=== PATIENT | female | born 1960 | race Caucasian/White ===

== ENCOUNTER 2017-05-24 19:30 | Emergency (ER) | payer OTHER ==
[~2017-05-24] VITALS: Ht 177.8 cm; Wt 70.0 kg
[~2017-05-24 19:30] MED LIST: LORTA5 PO; METH750T2 PO; MOBI15TA PO; PERC10TA27 PO; PERC5TAB12 PO; PRED20 PO; SOMA350T PO
[2017-05-24 19:39] VITALS: BP 144/78; PULSE 62; RESP 14; O2SAT 98
[2017-05-24] MEDS ORDERED: CIPR3.5O RIGHT EYE (19:49)
--- NOTE | 2017-05-24 19:59 | PD ---
HPI Chief Complaint: Eye Problems/Injury Time Seen by Provider: 19:47 Travel History International Travel<30 days: No Contact w/Intl Traveler<30days: No Traveled to known affect area: No History of Present Illness HPI 56-year-old female presents to the emergency room for evaluation of right eye redness and burning that started 2 days ago. Patient states she had a eyelash the medial aspect of her right eye which she was able to remove without difficulty. She developed mild redness that seemed to be improving until it significantly worsened tonight. Patient states the redness went from a few millimeters and began to extend up her eye a period of 2 hours. She denies rubbing her eye or recent straining or coughing. She denies any current foreign body sensation, pain, photophobia, changes in visual acuity, itchiness, or drainage. She wears contacts. States she recently used an old contact case and is concerned she may have gotten conjunctivitis. No chronic medical conditions or daily medications. PFSH Past Medical History Diminished Hearing: No Kidney Stones: Yes Immunizations Current: Yes ?: Not Past Surgical History Tonsillectomy: Yes Social History Alcohol Use: No Tobacco Use: No Substance Use: No Allergies-Medications (Allergen,Severity, Reaction): Coded Allergies: No Known Allergies (Unverified Adverse Reaction, Unknown, 05/24/17) Reported Meds & Prescriptions Reported Meds & Active Scripts Active Robaxin (Methocarbamol) 750 Mg Tab 750 Mg PO QID Percocet 5-325 mg (Oxycodone/Acetaminophen) Oxycodone 5/325 Acetaminophen Tab 1- 2 Tab PO Q6H PRN Soma (Carisoprodol) 350 Mg Tab 350 Mg PO TID Percocet 10/325 (Oxycodone/Acetaminophen) Oxycodone 10/325 Acetaminophen Tab 1 Tab PO Q6H PRN Fertile 5/325 (Hydrocodone/Acetaminophen 5/325) 5 mg/325 mg Tab 1 Tab PO Q6H PRN Deltasone (Prednisone) 20 Mg Tab 1 Tab PO DAILY Mobic (Meloxicam) 15 Mg Tab 15 Mg PO DAILY Review of Systems Except as stated in HPI: all other systems reviewed are Neg Physical Exam Narrative GENERAL: Well-nourished, well-developed female in no acute distress. Afebrile. Ambulatory. SKIN: Focused skin assessment warm/dry. HEAD: Normocephalic. EYES: PERRL, EOMI without pain. No discharge. Mild to moderate injection localized to the medial right eye. No chemosis. No scleral icterus. Fluorescein staining reveals no corneal abrasion, ulceration, or foreign body. Visual acuity is 20/15 in the right and 20/20 in the left. No photophobia. NECK: Supple, trachea midline. No JVD or lymphadenopathy. Data Data Last Documented VS Vital Signs Date Time Temp Pulse Resp B/P (MAP) Pulse Ox O2 Delivery O2 Flow Rate FiO2 05/24/17 19:43 14 05/24/17 19:39 62 144/78 (100) 98 MDM Medical Decision Making Medical Screen Exam Complete: Yes Emergency Medical Condition: Yes Medical Record Reviewed: Yes Differential Diagnosis Conjunctivitis, subconjunctival hemorrhage, foreign body Narrative Course 56-year-old female presents to the emergency room for evaluation of right eye redness and discomfort for the past several days. States symptoms have waxed and waned. They worsened quickly tonight. Patient denies any drainage, foreign body sensation, significant pain, photophobia, or changes in visual acuity. Physical clinical exam is reassuring. Patient has had moderate injection to the right medial eye with no corneal involvement. Fluorescein staining is negative. Visual acuity is 20/15 in the right and 20/20 in the left. I suspect some conjunctival hemorrhage the patient will be treated empirically for conjunctivitis given history of recent, possible contact case contamination. She is discharged with prescription for ciprofloxacin up home appointment and told to follow up with a primary care physician and/or force dispatcher if symptoms persist or return for worsening symptoms. She understands and agrees to plan. Diagnosis Primary Impression: Acute conjunctivitis, right eye Qualified Codes: H10.31 - Unspecified acute conjunctivitis, right eye Referrals: Director Of Mobile Marketing Additional Instructions: Apply ointment 3 times daily to the right eye for the first 2 days and then twice daily for 5 days. Follow-up with an force dispatcher. Return to the emergency room for worsening symptoms. Med/Other Pt SpecificInfo: Prescription(s) given Scripts Ciprofloxacin Opth Oint (Ciloxan Opth Oint) 0.3% Oint 0.5 INCH RIGHT EYE TID for Infection, #1 TUBE 0 Refills Prov: Shasta Felipe MD 05/24/17 Disposition: 01 DISCHARGE HOME Condition: Stable Laura Ramos May 24, 2017 19:59
== END 2017-05-24 20:22 | disposition home or self-care (01) ==
LOC: NEPC 19:30
DX: H10.31 Unspecified acute conjunctivitis, right eye (principal)
CPT/HCPCS: 99283